=== PATIENT | female | born 1985 ===

== ENCOUNTER 2018-07-27 14:37 | Emergency (ER) | payer SELFPAY ==
[2018-07-27] MEDS ORDERED: Albuterol/Ipratropium NEB.SOL* Albuterol 2.5 MG/Ipratropium 0.5 MG 3 ML INH ONE (16:56)
[2018-07-27] MEDS ORDERED: predniSONE TAB* 20 MG PO ONE (16:56)
--- NOTE | 2018-07-27 16:56 | UC ---
Respiratory Complaint HPI - HPI Summary HPI Summary: 33 y/o female presents to the urgent care c/o chest congestion w/ productive cough and mild wheezing for the past week. symptoms started w/ a common cold. She has been using her albuterol inhaler. However today she feels she is wheezing more. Pt denies fever, SOB, chest pain, abdominal pain, N/V/D. - History of Current Complaint Chief Complaint: UCRespiratory Stated Complaint: URI Time Seen by Provider: 07/27/18 16:40 Hx Obtained From: Patient Hx Last Menstrual Period: one week ago ?: No Onset/Duration: Sudden Onset, Lasting Weeks - 1 week, Still Present, Worse Since - yesterday Timing: Constant Severity Initially: Mild Severity Currently: Moderate Pain Intensity: 0 Pain Scale Used: 0-10 Numeric Character: Cough: Productive, Sputum Description: - yellowish Aggravating Factors: Recumbent Position Alleviating Factors: Bronchodilator Associated Signs And Symptoms: Positive: Wheezing, URI Related History: Similar Episode/Dx as: - asthma exacerbation - Risk Factors Pulmonary Embolism Risk Factors: Negative Cardiac Risk Factors: Negative Pseudomonas Risk Factors: Negative Tuberculosis Risk Factors: Negative - Allergies/Home Medications Allergies/Adverse Reactions: Allergies Allergy/AdvReac Type Severity Reaction Status Date / Time No Known Allergies Allergy Verified 07/27/18 15:22 Home Medications: Home Medications Albuterol HFA INHALER* [Ventolin HFA Inhaler*] 2 puff INH Q4HR 07/27/18 [ History Confirmed 07/27/18] Bupropion XL* [Wellbutrin XL *] 1 tab PO DAILY 07/27/18 [History Confirmed 07/27] Levothyroxine TAB* [Synthroid 75 MCG TAB*] 1 dose PO DAILY 07/27/18 [History Confirmed 07/27/18] PMH/Surg Hx/FS Hx/Imm Hx Previously Healthy: Yes Endocrine History: Hypothyroidism Respiratory History: Asthma - Surgical History Surgical History: None - Family History Known Family History: Positive: Respiratory Disease - Asthma - Social History Occupation: Employed Full-time Lives: With Family Alcohol Use: Occasionally Substance Use Type: None Smoking Status (MU): Never Smoked Tobacco Review of Systems Constitutional: Negative Skin: Negative Eyes: Negative ENT: Nasal Discharge, Sinus Congestion Respiratory: Cough - productive, Other - wheezing Cardiovascular: Negative Gastrointestinal: Negative Genitourinary: Negative Motor: Negative Neurovascular: Negative Musculoskeletal: Negative Neurological: Negative Psychological: Negative Is Patient Immunocompromised?: No All Other Systems Reviewed And Are Negative: Yes Physical Exam - Summary Physical Exam Summary: Vital Signs Reviewed: Yes General: well developed, well nourished female sitting in the examining table w/ o any apparent distress Eyes: Positive: Conjunctiva Clear - PERRLA, EOMI, fundi grossly normal ENT: Positive: Normal ENT inspection, Hearing grossly normal, Pharynx normal, Nasal congestion - edematous and erythematous nasal mucosa, Nasal drainage - yellowish drainage, TMs normal. Negative: Tonsillar swelling, Tonsillar exudate Neck: Positive: Supple, Nontender, No Lymphadenopathy Respiratory: no orthopnea or dyspnea. Able to speak in full sentences, no retractions or accessory muscle use, no tripod position, stridor, or head bobbing. Positive breath sounds bilaterally. diffuse scattered wheezing and rhonchi on b/L lungs, no crackles or rales. Cardiovascular: Positive: RRR, No Murmur, Pulses Normal, Brisk Capillary Refill Abdomen Description: Positive: Nontender, No Organomegaly, Soft. Negative: CVA Tenderness (R), CVA Tenderness (L) Bowel Sounds: Positive: Present Musculoskeletal Exam: Normal Musculoskeletal: Positive: Strength Intact, ROM Intact, No Edema Neurological Exam: Normal Psychological Exam: Normal Skin Exam: Normal Triage Information Reviewed: Yes Vital Signs: Initial Vital Signs Temp 98.9 F 07/27/18 15:19 Pulse 67 07/27/18 15:19 Resp 18 07/27/18 15:19 BP 126/74 07/27/18 15:19 Pulse Ox 98 07/27/18 15:19 Diagnostic Evaluation - Laboratory O2 Sat by Pulse Oximetry: 98 Respiratory Course/Dx - Course Course Of Treatment: 33 y/o female presents to the urgent care c/o chest congestion w/ productive cough and mild wheezing for the past week. symptoms started w/ a common cold. She has been using her albuterol inhaler. However today she feels she is wheezing more. Pt denies fever, SOB, chest pain, abdominal pain, N/V/D.Hx obtained. Pt w/ B/L lung scattered wheezes on examination. O2Sat:98. Pt given Prednisone PO and Duoneb Treatment to alleviate symptoms. Pt tolerated well treatment and lungs improved. Patient prescribed Z- ravi PO, Prednisone taper dose, Albuterol inhaler as directed below. The patient was recommended to increase fluid intake. Take medications as recommended. Patient recommended to return to the clinic or f/u w/ PCP if not improvement of symptoms. D/C instructions explained. Patient understood and agree w/ plan of care. Pt left clinic hemodynamically stable , A&OX3. - Differential Dx/Diagnosis Differential Diagnosis/HQI/PQRI: Asthma, Bronchitis, Influenza, Laryngitis, Lower Resp Infection, Sinusitis Provider Diagnoses: 1- Acute asthma exacerbation due to bronchitis. 2-wheezing Discharge - Sign-Out/Discharge Documenting (check all that apply): Patient Departure - D/C home All imaging exams completed and their final reports reviewed: No Studies - Discharge Plan Condition: Stable Disposition: HOME Prescriptions: Albuterol HFA INHALER* [Ventolin HFA Inhaler*] 1 - 2 puff INH Q4H PRN #1 mdi PRN Reason: Wheezing Azithromyxin RAVI (NF) [Z-Ravi (Zithromax) 250 mg tabs #6] 2 tab PO .TODAY, THEN 1 DAILY #6 tab predniSONE TAB* [Deltasone 20 MG TAB*] 20 mg PO DAILY #8 tab Patient Education Materials: Asthma (ED), Acute Bronchitis (ED) Forms: *Work Release Referrals: No Primary Care Phys,NOPCP [Primary Care Provider] - 3 Days Additional Instructions: 1- Take Prednisone PO taper dose as directed starting tomorrow. First loading dose given today. 2- Take Z-ravi as directed to alleviate symptoms 3-Use albuterol inhaler to alleviate wheezing as directed . Increase fluid intake, rest and eat well. 4- F/u with your PCP in 2-3 days for further management on your Asthma - Billing Disposition and Condition Condition: STABLE Disposition: Home
[2018-07-27 18:01] VITALS: BP 132/70
== END 2018-07-27 17:50 | disposition home or self-care (01) ==
LOC: UCEAST 14:37
DX: J40 Bronchitis, not specified as acute or chronic (principal); J45.901 Unspecified asthma with (acute) exacerbation; R06.2 Wheezing; J45.909 Unspecified asthma, uncomplicated; E03.9 Hypothyroidism, unspecified
CPT/HCPCS: 99212; A9270-GY; G0463; J7512